=== PATIENT | male | born 1990 | race Caucasian/White ===

== ENCOUNTER 2023-05-14 19:54 | Emergency (ER) | payer SELFPAY ==
[~2023-05-14] VITALS: Ht 175.3 cm; Wt 73.1 kg
[2023-05-14 20:13] VITALS: BP 126/59; PULSE 94; RESP 18; O2SAT 98
[2023-05-15] MEDS ORDERED: NAPR-1334 PO (10:38)
== END 2023-05-14 23:02 | disposition left against medical advice (07) ==
LOC: ER 19:54
DX: M79.662 Pain in left lower leg (principal); R51.9 Headache, unspecified; I25.2 Old myocardial infarction; F15.90 Other stimulant use, unspecified, uncomplicated
CPT/HCPCS: 70450

== ENCOUNTER 2023-05-15 06:37 | Emergency (ER) | payer OTHER ==
[~2023-05-15] VITALS: Ht 162.6 cm; Wt 72.9 kg
[2023-05-15 06:54] VITALS: BP 134/73; PULSE 70; RESP 16; O2SAT 98
[2023-05-15 07:39] LABS: Basophils # (auto) 0.1 10 ^3/uL (0-0.2); Basophils % (auto) 0.9 % (0.0-2.0); Eosinophils # (auto) 0.2 10 ^3/uL (0-0.8); Eosinophils % (auto) 3.1 % (0.0-7.0); Hematocrit 42.9 % (41.0-53.0); Hemoglobin 14.6 g/dL (13.5-17.5); Lymphocytes # (auto) 1.8 10 ^3/uL (0.4-5.4); Lymphocytes % (auto) 24.6 % (10.0-50.0); Mean Corpuscular Hemoglobin 30.4 pg (28.0-32.0); Mean Corpuscular Volume 89.2 fL (80.0-100.0); Monocytes # (auto) 0.7 10 ^3/uL (0-1.3); Monocytes % (auto) 9.6 % (0.0-12.0); Neutrophils # (auto) 4.5 10 ^3/uL (1.6-8.6); Neutrophils % (auto) 61.8 % (37.0-80.0); White Blood Cell 7.3 10^3/uL (4.4-10.8)
[2023-05-15 07:55] LABS: INR 1.08 (0.9-1.15); Prothrombin Time 11.3 sec (9.3-11.8)
[2023-05-15 08:08] LABS: Chloride 105 mmol/L (98-107); Potassium 4.8 mmol/L (3.5-5.1); Sodium 139 mmol/L (136-145)
[2023-05-15 08:09] LABS: Anion Gap 2 (5-15); Carbon Dioxide 32 mmol/L (20-30)
[2023-05-15 08:10] LABS: Calcium 9.3 mg/dL (8.5-10.1)
[2023-05-15 08:14] LABS: Glucose 108 mg/dL (74-106)
[2023-05-15 08:15] LABS: Blood Alcohol < 3.0 mg/dL (<10); Blood Urea Nitrogen 9 mg/dL (9-23)
[2023-05-15 08:17] LABS: Creatine Kinase IFCC 94 U/L (46-171)
[2023-05-15 08:44] LABS: Urine WBC None Seen /hpf (0 - 3)
[2023-05-15 09:07] LABS: Acetaminophen < 2.0 UG/ML (10.0-20.0)
[2023-05-15 09:11] LABS: Salicylate < 3.0 mg/dL (2.8-20.0)
[2023-05-15 09:13] LABS: Amphetamine Screen, Urine Neg (NEGATIVE); Barbiturate Scree,Urine Neg (NEGATIVE); Benzodiazephine Screen, Urine Neg (NEGATIVE); Cannabinoid Screen, Urine Neg (NEGATIVE); Cocaine Screen, Urine Neg (NEGATIVE); Opiate Scree,Urine Neg (NEGATIVE); Phencyclidine Screen, Urine Neg (NEGATIVE)
[2023-05-15 09:25] LABS: Urine Bacteria NONE SEEN /hpf (None Seen); Urine Blood Negative /uL (Negative); Urine Clarity Clear (Clear); Urine Color Colorless (Yellow); Urine Protein, UAD Negative (Negative); Urine Specific Gravity 1.011 (1.001-1.035); Urine Urobilinogen Normal (Negative); Urine pH 7.5 (5.0-8.0)
[2023-05-15 09:34] LABS: Bilirubin, Direct 0.3 mg/dL (<0.3); Bilirubin, Total 0.8 mg/dL (0.2-1.0); Total Protein 6.6 g/dL (5.7-8.2)
[2023-05-15] MEDS ORDERED: NAPR-1334 PO (10:38)
== END 2023-05-15 11:54 | disposition home or self-care (01) ==
LOC: ER 06:37
DX: M79.605 Pain in left leg (principal); R51.9 Headache, unspecified; F17.210 Nicotine dependence, cigarettes, uncomplicated; F11.10 Opioid abuse, uncomplicated; Z79.899 Other long term (current) drug therapy
CPT/HCPCS: 36415; 80048; 80076; 80307; 80320; 80329; 81001; 82550; 84484; 85025; 85610; 93971

== ENCOUNTER 2023-05-30 03:31 | Emergency (ER) | payer OTHER ==
[~2023-05-30] VITALS: Ht 167.6 cm; Wt 68.0 kg
[~2023-05-30 03:31] MED LIST: NAPR-1334 PO
[2023-05-30] MEDS: MAALOX PLUS or MAALOX 30 ML PO ONE (07:49)
[2023-05-30] MEDS: DONNATAL 5ml ORAL Elix (BELLADONNA ALK-PHENOBARB) PO ONE (07:52)
[2023-05-30] MEDS: LIDOCAINE VISCOUS 2% 15ML UD PO ONE (07:52)
[2023-05-30 07:58] VITALS: BP 136/71; PULSE 75; RESP 16; TEMP 98.1; O2SAT 95
== END 2023-05-30 07:58 | disposition home or self-care (01) ==
LOC: ER 03:31 → EDBD 03:31 → ER 07:58
DX: K29.70 Gastritis, unspecified, without bleeding (principal); F17.210 Nicotine dependence, cigarettes, uncomplicated; Z59.00 Homelessness unspecified; Z79.899 Other long term (current) drug therapy

== ENCOUNTER 2023-05-30 08:46 | Emergency (ER) | payer OTHER ==
[~2023-05-30] VITALS: Ht 175.3 cm; Wt 75.0 kg
[2023-05-30 09:00] VITALS: BP 110/89; PULSE 78; RESP 16; O2SAT 97
== END 2023-05-30 09:55 | disposition home or self-care (01) ==
LOC: ER 08:46
DX: K29.70 Gastritis, unspecified, without bleeding (principal); F17.210 Nicotine dependence, cigarettes, uncomplicated; Z59.00 Homelessness unspecified; Z79.899 Other long term (current) drug therapy